=== PATIENT | male | born 1985 | race Hispanic/Latino ===

== ENCOUNTER 2018-07-16 08:12 | Day surgery (SDC) | payer OTHER, SELFPAY ==
[2018-07-07 14:52] VITALS: BMI 25.5
[2018-07-16] VITALS (8 sets, daily range): BP systolic 94–131; BP diastolic 61–89; PULSE 62–81; RESP 8–22; TEMP 36.1–36.6; O2SAT 96–100; BMI 25.5
--- NOTE | 2018-07-16 | PATH_ITS ---
[facility] Accession Number: [id number] . 01 Material submitted: . ANAL WARTS . 02 Diagnosis: Anal, Biopsies: Hypertrophied anal papilla (benign fibroepithelial polyps). No evidence of dysplasia or malignancy. MRV/07/19/2018 . 02 Electronically signed: . Opal Corrales MD, Pathologist NPI- [id number] . 01 Gross description: . Received in formalin, labeled anal warts, are multiple phelan-kraus firm lesions (2.2 x 0.5 x 0.3 cm in aggregate). The resection margins are inked a different color. Each is bisected and entirely submitted in cassette A1. ([id number]) /MRV . 02 Pathologist provided ICD-10: K62.89 . 02 CPT . 475672 Performed at: 01 [facility] [address], [place], [place] [id number] MD Main Fatima MD Phone: [phone] Performed at: 02 [facility] [address] [place], [place] [id number] MD Opal Corrales MD Phone: [phone]
[2018-07-16] MEDS: LACTATED RINGERS 1,000 ML 100 ML IV (09:17)
--- NOTE | 2018-07-16 10:34 | PM.PREOP ---
Pre-operative Note Interval Note History & Physical reviewed/Exam performed by Physician: Yes Changes to H&P: No
--- NOTE | 2018-07-16 11:19 | SUR.OPER ---
Prone on padded OR bed, head in foam head support, gel chest rolls, gel pad under knees, pillow under lower legs, toes free of pressure, arms secured on padded arm boards at <90 degrees abduction. Safety belt at thigh.
[2018-07-16] MEDS: BUPIVACAINE 0.5% W/ EPI (PF) VIAL 30 ML INJ (11:24)
--- NOTE | 2018-07-16 11:37 | PM.OP.1 ---
Operative Date/Time/Diagnoses Date of procedure: 07/16/18 Time of procedure: 11:38 Pre-op diagnosis: Condyloma acuminata of the anus Post-op diagnosis: same Procedure & Clinicians Procedure: Excision fulguration condyloma acuminata Same procedure as scheduled: Yes Indications: Condyloma Surgeon: Raffaele Askew Click Yes if Unassisted: Yes Operative Notes Findings: Small circumferential warts both internal and external. All disease appeared to be either excised or fulgurated. Closure Type: not applicable Specimen(s): other (Sampling of lesions) Estimated Blood Loss (mL): 3 Blood products transfused: none Procedure in detail: Patient was placed duct knife prone on the operating room table after undergoing general endotracheal anesthesia. He was prepped and draped in the usual fashion. I excised for lesions from around his anus. The base of these was cauterized. A bivalve was inserted and circumferential exam undertaken. I cauterized warts both internally and externally. All were fairly small. When I was satisfied that all warts both internal and external were cauterized I inserted a piece of Gel-Foam with Nupercainal on it. Dressing was applied the patient was awakened extubated taken to recovery area in good condition. Complications: none Condition: stable Disposition: PACU
--- NOTE | 2018-07-16 12:03 | SUR.PHASEI ---
Declined po intake. Reported pain improving.
[2018-07-16] MEDS: HYDROCODONE/ACET 5/325 TABLET 1 TAB PO (12:20)
== END 2018-07-16 13:24 | disposition home or self-care (01) ==
PROVIDERS: PCP Physician Assistant; Visit Provider Specialist
PROC: (CPT 45990; principal; 2018-07-16 11:00)
DX: K62.0 Anal polyp (principal)
CPT/HCPCS: 46230; 88304; J1100; J3010

== ENCOUNTER 2019-04-04 08:44 | Day surgery (SDC) | payer OTHER, SELFPAY ==
[2019-04-04] VITALS (8 sets, daily range): BP systolic 89–121; BP diastolic 55–78; PULSE 62–80; RESP 12–16; TEMP 36.4–36.6; O2SAT 94–99; BMI 25.7
[2019-04-04] MEDS: LACTATED RINGERS 1,000 ML 100 ML IV (09:24)
--- NOTE | 2019-04-04 10:57 | PM.PREOP ---
Pre-operative Note Interval Note History & Physical reviewed/Exam performed by Physician: Yes Changes to H&P: No
[2019-04-04] MEDS: BUPIVACAINE 0.5% W/ EPI (PF) VIAL 30 ML INJ (11:27)
[2019-04-04] MEDS: DIBUCAINE 1% OINT 28 GM 1 APPLIC TOP (11:27)
--- NOTE | 2019-04-04 11:31 | PM.OP.ENDO ---
Operative Date/Time/Diagnoses Date of procedure: 04/04/19 Time of procedure: 11:31 Pre-op diagnosis: Rectal bleeding Post-op diagnosis: same (Anterior and posterior midline healing fissures.) Procedure & Clinicians Study performed: Colonoscopy Same procedure as scheduled: Yes Indications: Determine source of rectal bleeding Surgeon: Raffaele Askew Procedure Notes SCOAP/Timeout: Performed Procedure in detail: The patient was placed in left lateral decubitus position after undergoing general LMA anesthesia. This was chosen because of the uncertainty of the procedure I was going to need to perform. Digital exam was unremarkable. Small anterior skin tag noted.. The scope was inserted and advanced through the rectum into the sigmoid, descending, transverse, and ascending colon. Pressure was applied and we made our way into the cecum. The cecum was reached identified by the ileocecal valve and the appendiceal stump (patient is at an appendectomy). The ileocecal valve was successfully cannulated. The terminal ileum was normal in appearance. The scope was gradually brought out. No Polyps were found. The scope ultimately was retroflexed in the rectum. The appearance was normal. The scope was removed and the patient tolerated the procedure well. Prep was good once I irrigated out the small amount of residual liquid stool. I do not see any hemorrhoids to band. Local anesthetic was infiltrated in 4 quadrants around the anus. I chose the left lateral position and made a small incision in the intersphincteric groove. The internal sphincter was partially divided where it was slightly constricted and about the length of the fissure. Was is actually very short sphincterotomy. The area felt lax compared to pre division. The external sphincter was intact. Dibucaine was placed over the area and dressing was applied. Patient was taken extubated to the recovery room good condition. Scope withdrawal time: Over 6 minutes Sedation minutes: 0 (General anesthetic use due to need to do additional procedure resides a colonoscopy.) Findings: other findings (Anterior and posterior midline fissure) Specimen(s): none sent Complications: none Post-procedure Recommendations: Other recommendation (Colonoscopy at age 51 unless symptoms develop) Plan for aftercare: Follow-up in the office Follow up: weeks (1-2) Disposition: PACU
--- NOTE | 2019-04-04 11:52 | SUR.PHASEI ---
Report off to Crystal Jenkins RN. Pt continues sleeping, resp unlabored, oral airway in place. VSS.
--- NOTE | 2019-04-04 12:04 | SUR.PHASEI ---
Care not turned over d/t RN receiving a patient. Report given to Scarlet Wilson RN. Pt awake, HOB elevated, fluids given, denies pain/nausea.
== END 2019-04-04 12:36 | disposition home or self-care (01) ==
PROVIDERS: PCP Physician Assistant; Visit Provider Specialist
PROC: 0DJD8ZZ Inspection of Lower Intestinal Tract, Via Natural or Artificial Opening Endoscopic (ICD-10-PCS; CPT 45378; principal; 2019-04-04 10:15)
PROC: (CPT 46080; 2019-04-04 10:15)
DX: K60.1 Chronic anal fissure (principal)
CPT/HCPCS: 46200; 45378; J1100; J2250; J2405; J2704; J3010